=== PATIENT | male | born 1950 | race Caucasian/White ===

== ENCOUNTER 2022-03-15 12:11 | Emergency (ER) | payer OTHER ==
[~2022-03-15] VITALS: Ht 177.8 cm; Wt 83.0 kg
[2022-03-15] MEDS ORDERED: ATOR40TA75 PO (12:31)
[2022-03-15] MEDS ORDERED: ATEN25TA PO (12:31)
[2022-03-15] MEDS ORDERED: ISOVUE-370 76% 100ML VIAL As Ordered ONE (13:08)
[2022-03-15 13:15] LABS: BASO # 0.1 10^3/uL (0.0-0.2); BASO % 0.7 % (0.0-1.0); EOS # 0.1 10^3/uL (0.0-0.5); EOS % 1.1 % (0.0-3.0); HEMATOCRIT 44.3 % (42.0-52.0); HEMOGLOBIN 14.6 g/dl (13.5-17.5); LYMPH # 1.2 10^3/uL (1.5-5.0); LYMPH % 13.8 % (24.0-44.0); MEAN CORPUSCULAR HEMOGLOBIN 30.5 pg (27.0-33.0); MEAN CORPUSCULAR VOLUME 92.7 fl (80.0-96.0); MONO % 10.6 % (2.0-8.0); NEUTROPHILS # 6.6 10^3/uL (1.5-8.5); NEUTROPHILS % 73.6 % (36.0-66.0); PLATELET COUNT, AUTOMATED 426 10^3/uL (150-450); RED BLOOD COUNT 4.78 10^6/uL (4.30-6.10); WHITE BLOOD COUNT 8.9 10^3/uL (4.0-10.0)
[2022-03-15] MEDS ORDERED: diphenhydrAMINE 50MG/ML VIAL (J1200) IV ONE (13:15)
[2022-03-15] MEDS ORDERED: methylPREDNISolone 125MG 2ML VIAL IV ONE (13:15)
[2022-03-15 13:27] LABS: INR 1.09; PROTHROMBIN TIME 14.5 SECONDS (12.7-14.5)
[2022-03-15 13:28] LABS: PARTIAL THROMBOPLASTIN TIME 30.9 SECONDS (25.9-37.0)
[2022-03-15 13:44] LABS: CK-MB VALUE MASS 2.3 NG/ML (<3.6); MB/CK RELATIVE INDEX 2.28 (< OR =4)
[2022-03-15 13:51] LABS: BLOOD UREA NITROGEN 20 MG/DL (7-18); CALCIUM LEVEL 8.7 MG/DL (8.8-10.2); CARBON DIOXIDE LEVEL 29 MEQ/L (21-32); CHLORIDE LEVEL 107 MEQ/L (98-107); GLOMERULAR FILTRATION RATE > 60.0 (>42); GLUCOSE, FASTING 99 MG/DL (70-100); POTASSIUM SERUM 4.5 MEQ/L (3.5-5.1); SODIUM LEVEL 141 MEQ/L (136-145)
[2022-03-15 14:02] LABS: RSV AMPLIFICATION NEGATIVE (NEGATIVE)
[2022-03-15] MEDS ORDERED: LABETALOL 100MG/20ML VIAL IV STA (14:26)
[2022-03-15] MEDS ORDERED: hydrALAZINE 20MG/ML 1ML VIAL (J0360 PER 20MG) IV ONE ×2 (14:35→15:20)
[2022-03-15 15:15] VITALS: BP 154/87
[2022-03-15 15:23] VITALS: BP 154/87
== END 2022-03-15 15:28 | disposition short-term general hospital (02) ==
LOC: M ED 12:11
DX: I71.00 Dissection of unspecified site of aorta (principal); Z91.09 Other allergy status, other than to drugs and biological substances; Z87.891 Personal history of nicotine dependence; Z79.899 Other long term (current) drug therapy
CPT/HCPCS: 70450; 70496; 70498; 71045; 80047; 80048; 82550; 82553; 84443; 84484; 85025; 85610; 85730; 87631; 93005; 93041; 94760; 96374; 96375; 96376; 99285; J0360; J1200; J2930; Q9967

== ENCOUNTER 2024-06-04 11:57 | Emergency (ER) | payer MEDICARE, OTHER ==
[~2024-06-04] VITALS: Ht 177.8 cm; Wt 81.4 kg
[~2024-06-04 11:57] MED LIST: ATEN25TA PO; ATOR40TA75 PO
[2024-06-04] MEDS ORDERED: ELIQ5TAB PO (12:13)
[2024-06-04 13:54] VITALS: BP 166/78; TEMP 97.8; O2SAT 99
[2024-06-04] MEDS ORDERED: AMOX875T2 PO (14:00)
== END 2024-06-04 14:34 | disposition home or self-care (01) ==
LOC: M ED 11:57
DX: R04.0 Epistaxis (principal); Z91.048 Other nonmedicinal substance allergy status; Z79.01 Long term (current) use of anticoagulants; Z79.2 Long term (current) use of antibiotics; Z79.899 Other long term (current) drug therapy

== ENCOUNTER 2025-05-19 08:31 | Emergency (ER) | payer OTHER, MEDICARE ==
[~2025-05-19] VITALS: Ht 177.8 cm; Wt 83.3 kg
[~2025-05-19 08:31] MED LIST changes: +AMOX875T2 PO; +ELIQ5TAB PO
[2025-05-19 09:55] LABS: KETONE, URINE AUTO RFX NEGATIVE (NEGATIVE); LEUKOCYTE ESTERASE UR AUTO RFX NEGATIVE (NEGATIVE); MUCUS, URINE RFX SMALL (NEGATIVE); NITRITE, URINE AUTO RFX NEGATIVE (NEGATIVE); RBC, URINE AUTO RFX 0 /HPF (0-3); SQUAM EPITHELIAL CELL UR AURFX 0 /HPF (0-6); WBC, URINE AUTO RFX 0 /HPF (0-3)
[2025-05-19 10:04] LABS: BASO # 0.1 10^3/uL (0.0-0.2); BASO % 0.6 % (0.0-1.0); EOS # 0.1 10^3/uL (0.0-0.5); EOS % 0.8 % (0.0-3.0); LYMPH # 0.9 10^3/uL (1.5-5.0); LYMPH % 6.9 % (24.0-44.0); MONO # 1.1 10^3/uL (0.0-0.8); MONO % 8.9 % (2.0-8.0); NEUTROPHILS # 10.2 10^3/uL (1.5-8.5); NEUTROPHILS % 82.4 % (36.0-66.0); PLATELET COUNT, AUTOMATED 429 10^3/uL (150-450)
[2025-05-19 10:28] LABS: ALT/SGPT 23.0 U/L (7.0-40); AST/SGOT 22.0 U/L (<34); CALCIUM LEVEL 9.4 MG/DL (8.3-10.6); CARBON DIOXIDE LEVEL 29.0 MMOL/L (20-31); CHLORIDE LEVEL 101.0 MMOL/L (98-107); CREATININE FOR GFR 1.13 MG/DL (0.70-1.30); GLOMERULAR FILTRATION RATE 68.6 (>42); POTASSIUM SERUM 4.7 MMOL/L (3.5-5.1); SODIUM LEVEL 140.0 MMOL/L (136-145)
[2025-05-19] MEDS: FAMOTIDINE IV BAG 20 MG in IV 1 EA IV ONE (10:52)
[2025-05-19] MEDS: diphenhydrAMINE 50 MG/ML VIAL IV STA (10:52)
[2025-05-19] MEDS ORDERED: MAGN400T35 PO (11:08)
[2025-05-19] MEDS ORDERED: SIMV40TA20 PO (11:08)
[2025-05-19] MEDS ORDERED: B-2100TA PO (11:08)
[2025-05-19] MEDS ORDERED: CO Q200C10 PO (11:08)
[2025-05-19] MEDS ORDERED: ELIQ2.5T PO (11:08)
[2025-05-19] MEDS ORDERED: D 1010004 PO (11:08)
[2025-05-19] MEDS ORDERED: ISOVUE-370 76% 100 ML VIAL As Ordered ONE (11:10)
[2025-05-19] MEDS ORDERED: HOME MED LIST COMPLETE! XX SCH (11:10)
[2025-05-19 12:10] LABS: ESTIMATED AVERAGE GLUCOSE 126.0 MG/DL (60-110)
[2025-05-19] MEDS ORDERED: CIPR-249 PO (13:37)
[2025-05-19] MEDS ORDERED: METR-265 PO (13:38)
[2025-05-19] MEDS: CIPROFLOXACIN 500 MG TABLET PO ONE (13:54)
[2025-05-19 13:55] VITALS: BP 149/72; TEMP 97.2; O2SAT 96
== END 2025-05-19 13:56 | disposition home or self-care (01) ==
LOC: M ED 08:31
DX: K57.32 Diverticulitis of large intestine without perforation or abscess without bleeding (principal); I25.10 Atherosclerotic heart disease of native coronary artery without angina pectoris; I25.2 Old myocardial infarction; E11.9 Type 2 diabetes mellitus without complications; Z86.718 Personal history of other venous thrombosis and embolism; Z87.442 Personal history of urinary calculi; Z88.3 Allergy status to other anti-infective agents
CPT/HCPCS: 74177; 80047; 80048; 80076; 81001; 83036; 83605; 83690; 85025; 93041; 96374; 96375; 99284; J1200; J1308; J2919; Q9967